=== PATIENT | male | born 1955 | race Caucasian/White ===

== ENCOUNTER 2017-05-27 13:45 | Emergency (ER) | payer OTHER ==
[~2017-05-27] VITALS: Ht 172.7 cm; Wt 117.9 kg
[2017-05-27] MEDS ORDERED: NORCO 5-325 TA1 EACH PO (14:16)
== END 2017-05-27 14:23 | disposition home or self-care (01) ==
LOC: ER 13:45
DX: M25.512 Pain in left shoulder (principal); G89.29 Other chronic pain; F17.210 Nicotine dependence, cigarettes, uncomplicated